=== PATIENT | female | born 1980 | race Caucasian/White ===

== ENCOUNTER 2022-10-09 10:06 | Observation (INO) | payer OTHER ==
[~2022-10-09] VITALS: Ht 157.5 cm; Wt 72.1 kg
[~2022-10-09 10:06] MED LIST: ACEBUTCAFT PO; CLON.5 PO; HYDACE5 PO; HYDACE5325 PO; NAPR500 PO; PROM25 PO; RXHYDACE PO
[2022-10-09 11:11] LABS: BASOPHILS ABSOLUTE AUTO 0.06 K/mm3 (0.00-0.23); BASOPHILS PERCENT AUTO 0 % (0-2); EOSINOPHILS ABSOLUTE AUTO 0.04 K/mm3 (0.00-0.68); EOSINOPHILS PERCENT AUTO 0 % (0-6); Hematocrit 37.4 % (33.0-51.0); Hemoglobin 12.1 g/dL (11.5-16.0); IMMATURE GRAN ABSOLUTE AUTO 0.16 K/mm3 (0.00-0.10); IMMATURE GRAN PERCENT AUTO 1 % (0-1); LYMPHOCYTES ABSOLUTE AUTO 1.88 K/mm3 (0.84-5.20); LYMPHOCYTES PERCENT AUTO 9 % (21-46); MONOCYTES ABSOLUTE AUTO 2.03 K/mm3 (0.16-1.47); MONOCYTES PERCENT AUTO 9 % (4-13); Mean Corpuscular HGB 28.1 pg (26.0-34.0); Mean Corpuscular HGB Conc 32.4 g/dL (31.5-36.5); Mean Corpuscular Volume 87 fL (80-100); Mean Platelet Volume 11.3 fL (9.1-12.4); NEUTROPHILS ABSOLUTE AUTO 18.01 K/mm3 (1.96-9.15); NEUTROPHILS PERCENT AUTO 81 % (41-73); Platelet Count 245 K/mm3 (150-400); RDW Coefficient Variation 15.4 % (11.7-14.2); RDW Standard Deviation 48.9 fL (35.1-46.3); White Blood Cell Count 22.18 K/mm3 (4.00-11.30)
[2022-10-09 11:44] LABS: Albumin/Globulin Ratio 0.6 (0.8-1.8); Bilirubin, Total 0.3 mg/dL (0.1-1.0); Bun/Creatinine Ratio 15.3 (12.0-20.0); Calcium, Blood 8.9 mg/dL (8.5-10.1); Creatinine, Blood 0.72 mg/dL (0.40-1.00); Globulin, Blood 4.9 g/dL (2.2-4.0); Potassium, Blood 3.7 mmol/L (3.5-5.5); Total Protein, Blood 7.9 g/dL (6.4-8.2)
[2022-10-09 12:29] LABS: Source, Urine Clean Catch
[2022-10-09 12:32] LABS: Appearance, Urine Hazy (Clear); Bilirubin, Urine Neg (Neg); Blood, Urine 2+ (Neg); Color, Urine Yellow (P-Yellow); Glucose Qualitative, Urine Neg (Neg); Ketones, Urine Neg (Neg); Leukocyte Esterase, Urine 3+ (Neg); Nitrite, Urine Neg (Neg); Protein, Urine 2+ (Neg); Specific Gravity, Urine 1.015 (1.003-1.022); Urobilinogen, Urine NORM (Normal)
[2022-10-09 12:42] LABS: White Blood Cells, Urine 50-100 /hpf (0-5)
[2022-10-09 12:43] LABS: Red Blood Cells, Urine 0-2 /hpf (0-2)
[2022-10-09 12:44] LABS: Bacteria Many /hpf; Squamous Epithelial Cells Rare /hpf (Few)
[2022-10-09 12:45] LABS: Mucus Light (0-Heavy)
[2022-10-09] MEDS ORDERED: TRAZ50 PO (14:45)
[2022-10-09] MEDS ORDERED: FLUO10 PO (14:45)
[2022-10-09 17:20] LABS: U Amphetamine Screen Not Detected; U Barbituate Screen Not Detected; U Benzodiazapine Screen Not Detected; U Buprenorphine Screen Not Detected; U Cannabinoids Screen Not Detected; U Cocaine Screen Not Detected; U Methadone Screen Not Detected; U Methamphetamine Screen Not Detected; U Opiates Screen Not Detected; U Oxycodone Screen Not Detected; U Phencyclidine Screen Not Detected; U Propoxyphene Screen Not Detected
--- NOTE | 2022-10-09 20:12 | NUR ---
PATIENT IS A NEW ADMIT AT DAY SHIFT CHANGE. AXOX 4 AND INDEPENDENT IN ROOM. DENIES CHEST PAIN, SOB, AND N/V. NS INFUSING AT 200 mL/HR X ONE BAG. ORIENTED TO ROOM AND CALL LIGHT SYSTEM. REPORTS WANTING TO SLEEP AFTER ASSESSMENT. WARM BLANKET PROVIDED AND DRINK PER DIET ORDER. CURRENTLY WATCHING TV AND TALKING ON PHONE. WCTM.
--- NOTE | 2022-10-10 04:06 | NUR ---
SHIFT SUMMARY PATIENT HAD NO ACUTE CHANGES. AXOX 4 AND INDEPENDENT IN ROOM. PIVS REMAIN INTACT. NS FINISHED INFUSING AT 200 mL/HR X ONE BAG. REPORTED HEADACHE X ONE AND TYLENOL 650 MG GIVEN PER EMAR. DENIES CHEST PAIN, SOB, AND N/V. REPORTED FEELING COLD AND WARM BLANKET PROVIDED AND ROOM TEMP INCREASED. VSS/AFEBRILE. SLEPT MOST OF THE SHIFT ONCE WARM. REPORTED CEDS AND ASKED FOR NICOTINE GUM. HOSPITALIST DR AGUILA ORDERED 2 MG PRN Q2. CALL LIGHT IN REACH. BED IN LOWEST POSITION. WILL CONTINUE TO MONITOR UNTIL DAY SHIFT NURSE ASSUMES CARE.
[2022-10-10 04:57] LABS: Hematocrit 34.4 % (33.0-51.0); Hemoglobin 11.1 g/dL (11.5-16.0); Mean Corpuscular HGB 28.5 pg (26.0-34.0); Mean Corpuscular HGB Conc 32.3 g/dL (31.5-36.5); Mean Corpuscular Volume 88 fL (80-100); Mean Platelet Volume 12.1 fL (9.1-12.4); Platelet Count 239 K/mm3 (150-400); RDW Coefficient Variation 15.6 % (11.7-14.2); RDW Standard Deviation 50.4 fL (35.1-46.3); Red Blood Cell Count 3.89 M/mm3 (3.80-5.20); White Blood Cell Count 15.73 K/mm3 (4.00-11.30)
[2022-10-10 05:20] LABS: Bun/Creatinine Ratio 18.1 (12.0-20.0); Calcium, Blood 8.2 mg/dL (8.5-10.1); Creatinine, Blood 0.72 mg/dL (0.40-1.00); Potassium, Blood 3.9 mmol/L (3.5-5.5)
[2022-10-10] MEDS ORDERED: CEFD300 PO (16:00)
[2022-10-10] MEDS ORDERED: VISBIOME 112.51 EACH PO (16:01)
--- NOTE | 2022-10-10 16:46 | NUR ---
DISCHARGE DISCHARGE INSTRUCTIONS, MEDICATIONS AND FOLLOW UP APPOINTMENTS REVIEWED WITH PT. QUESTIONS ASKED AND ANSWERED. PT VERBALLY INDICATED UNDERSTANDING OFF ALL INSTRUCTIONS RECEIVED. PT AMBULATED OUT.
== END 2022-10-10 16:44 | disposition home or self-care (01) ==
LOC: ER 10:06 → MEDS 10:07
PROVIDERS: Nurse Practitioner Acute Care; Physician Assistant; ADMIT Internal Medicine
DX: A41.9 Sepsis, unspecified organism (principal); R65.20 Severe sepsis without septic shock; N39.0 Urinary tract infection, site not specified; G43.909 Migraine, unspecified, not intractable, without status migrainosus; F41.9 Anxiety disorder, unspecified; F32.A Depression, unspecified; F17.210 Nicotine dependence, cigarettes, uncomplicated; Z88.0 Allergy status to penicillin; Z91.040 Latex allergy status
CPT/HCPCS: 36415; 80048; 80053; 81001; 83605; 85025; 85027; 87077; 87086; 87186; A9270; J0696; J1885; J2405; J7030; J7120

== ENCOUNTER 2023-08-01 16:05 | Observation (INO) | payer OTHER ==
[~2023-08-01] VITALS: Ht 157.5 cm; Wt 65.8 kg
[~2023-08-01 16:05] MED LIST changes: +CEFD300 PO; +FLUO10 PO; +TRAZ50 PO; +VISBIOME 112.51 EACH PO
[2023-08-01 16:29] LABS: BASOPHILS ABSOLUTE AUTO 0.07 K/mm3 (0.00-0.23); BASOPHILS PERCENT AUTO 0 % (0-2); EOSINOPHILS ABSOLUTE AUTO 0.09 K/mm3 (0.00-0.68); EOSINOPHILS PERCENT AUTO 1 % (0-6); Hematocrit 36.5 % (33.0-51.0); Hemoglobin 12.3 g/dL (11.5-16.0); IMMATURE GRAN ABSOLUTE AUTO 0.06 K/mm3 (0.00-0.10); IMMATURE GRAN PERCENT AUTO 0 % (0-1); LYMPHOCYTES ABSOLUTE AUTO 4.73 K/mm3 (0.84-5.20); LYMPHOCYTES PERCENT AUTO 30 % (21-46); MONOCYTES ABSOLUTE AUTO 1.26 K/mm3 (0.16-1.47); MONOCYTES PERCENT AUTO 8 % (4-13); Mean Corpuscular HGB 29.4 pg (26.0-34.0); Mean Corpuscular HGB Conc 33.7 g/dL (31.5-36.5); Mean Corpuscular Volume 87 fL (80-100); Mean Platelet Volume 11.6 fL (9.1-12.4); NEUTROPHILS ABSOLUTE AUTO 9.69 K/mm3 (1.96-9.15); NEUTROPHILS PERCENT AUTO 61 % (41-73); Platelet Count 359 K/mm3 (150-400); RDW Coefficient Variation 13.6 % (11.7-14.2); RDW Standard Deviation 43.1 fL (35.1-46.3); Red Blood Cell Count 4.19 M/mm3 (3.80-5.20)
[2023-08-01 17:22] LABS: Alanine Aminotransfer (ALT/SGP 33 U/L (12-78); Albumin, Blood 3.2 g/dL (3.4-5.0); Albumin/Globulin Ratio 0.8 (0.8-1.8); Alk Phos 79 U/L (50-136); Anion Gap 8 mmol/L (6-16); Aspartate Aminotrans (AST/SGOT 31 U/L (12-37); Bilirubin, Total 0.3 mg/dL (0.1-1.0); Blood Urea Nitrogen 13 mg/dL (8-24); Bun/Creatinine Ratio 15.5 (12.0-20.0); CO2, Blood 23 mmol/L (21-32); Calcium, Blood 8.8 mg/dL (8.5-10.1); Chloride, Blood 108 mmol/L (98-108); Creatinine, Blood 0.84 mg/dL (0.40-1.00); Ethanol (Alcohol), Blood, Med <3 mg/dL; Globulin, Blood 3.8 g/dL (2.2-4.0); Glomerular Filtration Rate 88 (60-); Glucose, Blood 139 mg/dL (70-99); Potassium, Blood 3.7 mmol/L (3.5-5.5); Sodium, Blood 139 mmol/L (136-145)
[2023-08-01 20:39] VITALS: BP 152/98
--- NOTE | 2023-08-01 20:42 | NUR ---
ARRIVAL PT ARRIVED DROWSY. REFUSED TO ALLOW ME TO FINISH ANY PAPERWORK OR CHARTING RELATED TO HER ADMISSION AND PENDING SURGERY, STATED THAT ALL WE ARE DOING IS "F STARVING HER" AND THAT WE ARE "NOT TO F TOUCH HER OR HER STUFF". PATIENT EDUCATED THAT SHE COULD NOT SPEAK TO STAFF THAT WAY AND THAT WE ARE HERE TO HELP MAKE HER COMFORTABLE AND THAT EATING BEFORE SURGERY IS NOT FEESABLE. PT C/O PAIN DURING BRIEF ASSESSMENT BUT REFUSING TO ANSWER QUESTIONS IN RELATION TO PAIN, THEREFORE UNABLE TO MEDICATE. UNABLE TO PERFORM ADMISSION D/T PTS NONCOPMPLIANCE, CHARGE NURSE UPDATED ON SITUATION, CHARGE CURRENTLY IN ROOM SPEAKING WITH PATIENT.
--- NOTE | 2023-08-01 21:47 | NUR ---
DR JAZZMINE DAY CALLED AND UPDATED ABOUT THE PT'S BEHAVIOR AND REFUSAL TO PARTICIPATE IN SIGNING CONSENTS FOR SURGERY/RECIEVING CARE. DR. DAY STATED THAT SHE WOULD BE IN TO SPEAK WITH THE PATIENT, AGAIN, BEFORE SURGERY AND REITTERATE WHAT SHE TOLD THE PATIENT IN THE EMERGENCY ROOM. DR. DAY ALSO STATED THAT THE PATIENT COULD D/C AFTER BEING SURGERY IF THAT IS WHAT SHE WISHED, SINCE SHE IS REFUSING TREATMENT AT THIS TIME. THE NURSING FANCY PACKER HAS BEEN UPDATED ON THIS SITUATION, THE CHARGE NURSE IS UPDATED ON THIS SITUATION. CIRCULATING NURSE INTRODUCED HERSELF TO THE PATIENT AND FAMILY. THIS CIRCULATING NURSE WAS UPDATED ON THE SITUATION AND ORIGIONALLY RECCOMENDED CALLING DR. DAY. THE PATIENTS PARENTS ARE IN HER ROOM, LOVING AND ATTENTIVE.
[2023-08-01 22:10] VITALS: BP 139/95
--- NOTE | 2023-08-01 22:27 | NUR ---
CALF MEASUREMENT L CALF 34.5 CM R CALF 33 CM
--- NOTE | 2023-08-01 23:23 | NUR ---
PROVIDER AT BEDSIDE DR. DAY ARRIVED TO SPEAK TO PT AND HER PARENTS ABOUT THE SURGERY AND TO OBTAIN CONCENT. THIS WAS OBTAINED AND PAPERS SIGNED. PT HAS BEEN EXTREMEL SLEEPY BUT IN A MUCH BETTER MOOD SINCE HER PARENTS HAVE ARRIVED. COOPERATIVE AND SPEAKING TO STAFF
[2023-08-02] VITALS (13 sets, daily range): BP systolic 111–138; BP diastolic 76–91
--- NOTE | 2023-08-02 00:53 | NUR ---
PT TO OR WHEELED PT DOWN TO OR WITH ELIZA RN
--- NOTE | 2023-08-02 01:07 | NUR ---
PT TO PACU FROM SURGICAL FLOOR TO BE MADE READY FOR SURGERY. PT SLEEPING BUT AROUSABLE. VSS, ON RA, PT WITH MULTIPLE ABRASIONS ON FACE AND BODY, HEAD WITH KERLIX WRAP. MOTHER AT BEDSIDE
[2023-08-02 04:24] LABS: Hematocrit 36.4 % (33.0-51.0); Mean Corpuscular HGB 29.8 pg (26.0-34.0); Mean Corpuscular Volume 90 fL (80-100); Mean Platelet Volume 11.3 fL (9.1-12.4); Platelet Count 300 K/mm3 (150-400); RDW Coefficient Variation 13.9 % (11.7-14.2); Red Blood Cell Count 4.03 M/mm3 (3.80-5.20); White Blood Cell Count 15.07 K/mm3 (4.00-11.30)
--- NOTE | 2023-08-02 04:33 | NUR ---
ARRIVAL FROM OR PT ARIVED BACK TO UNIT AFTER RECOVERING IN ICU. PT ARROUSABLE TO STIMULI BUT IS VERY SOMULENT. VSS. FORHEAD NOTED TO HAVE DRAINAGE, PILLOWCASE CHANGED. L CALF MEASURES 35 CM, RIGHT CALF MEASURES 33.[address] DAY OKAYED FOR THE PATIENT TO SHOWER WHEN AWAKE, AND IS ABLE TO EAT WHAT SHE CAN TOLLERATE. NO IV ABX NEEDED. TELE PLACED, READS SR 80'S.
[2023-08-02 04:42] LABS: Bun/Creatinine Ratio 12.5 (12.0-20.0); Calcium, Blood 8.1 mg/dL (8.5-10.1); Creatinine, Blood 0.88 mg/dL (0.40-1.00); Magnesium, Blood 1.9 mg/dL (1.6-2.4); Potassium, Blood 3.6 mmol/L (3.5-5.5)
--- NOTE | 2023-08-02 06:34 | NUR ---
SHIFT SUMMARY POD0 FORHEAD I&D, VENOLOOP IN PLACE, SS DRAINAGE NOTED FROM WOUND. PT SLEPT T/O THE NIGHT AND WOKE THIS AM IN A VERY GOOD MOOD. PT C/O GENERALIZED BODY ACHES AND PAIN RELATED TO HER HEAD LAC, BUT REQUESTED ONLY TYLENOL. TYLENOL AND TORADOL GIVEN FOR RELIEF. PT UP TO BSC WITH 1P AND GT BELT FOR SAFETY, PT TOLLERATED WELL AND VOIDED W/O DIFFICULTY. PT REPORTS SHE IS HOPEFUL TO D/C TODAY BUT WANTS TO SPEAK TO HER SURGEON FIRST. NO ACUTE EVENTS SINCE ARRIVING BACK FROM RECOVERY. MOTHER AT BEDSIDE, ATTENTIVE AND LOVING
[2023-08-02] MEDS ORDERED: ACET325 PO (11:12)
[2023-08-02] MEDS ORDERED: IBUP600 PO (11:13)
--- NOTE | 2023-08-02 12:39 | NUR ---
DISCHARGE PT DISCHARGED HOME FROM UNIT AT APROX 1131. PT GIVEN WRITTEN AND VERBAL DC INSTRUCTIONS AND VERBALIZED UNDERSTANDING OF THESE INSTRUCTIONS. IV REMOVED, TOLERATED WELL. DECLINED WC TO CAR.
== END 2023-08-02 12:50 | disposition home or self-care (01) ==
LOC: ER 16:05 → SURS 16:06
PROVIDERS: Student in an Organized Health Care Education/Training Program; ADMIT Surgery
DX: S08.0XXA Avulsion of scalp, initial encounter (principal); S32.049A Unspecified fracture of fourth lumbar vertebra, initial encounter for closed fracture; S80.12XA Contusion of left lower leg, initial encounter; S80.11XA Contusion of right lower leg, initial encounter; S40.812A Abrasion of left upper arm, initial encounter; S40.811A Abrasion of right upper arm, initial encounter; S60.512A Abrasion of left hand, initial encounter; S60.511A Abrasion of right hand, initial encounter; Y03.0XXA Assault by being hit or run over by motor vehicle, initial encounter; F17.200 Nicotine dependence, unspecified, uncomplicated; F15.90 Other stimulant use, unspecified, uncomplicated; Z88.0 Allergy status to penicillin
CPT/HCPCS: 36415; 70450; 71045; 71260; 72125; 72170; 73090; 73590; 74177; 80048; 80053; 82550; 83690; 83735; 84703; 85025; 85027; 86850; 86900; 86901; 90471; 90715; 94760; 96374-59; 96375; 96375-59; 96376; 99285-25; A9270; G0378; G0480; J0330; J0690; J1100; J1170; J1885; J2405; J2704; J3010; J7120; Q9967

== ENCOUNTER 2023-08-04 08:11 | Emergency (ER) | payer OTHER ==
[~2023-08-04] VITALS: Ht 157.5 cm; Wt 63.5 kg
[~2023-08-04 08:11] MED LIST changes: +ACET325 PO; +IBUP600 PO
[2023-08-04 08:46] VITALS: BP 117/87
[2023-08-04] MEDS ORDERED: Norco 5-325 Ta1 EACH PO (11:39)
== END 2023-08-04 11:58 | disposition home or self-care (01) ==
LOC: ER 08:11
DX: S43.101A Unspecified dislocation of right acromioclavicular joint, initial encounter (principal); M79.605 Pain in left leg; V09.20XA Pedestrian injured in traffic accident involving unspecified motor vehicles, initial encounter; F17.200 Nicotine dependence, unspecified, uncomplicated; Z88.0 Allergy status to penicillin; Z91.040 Latex allergy status
CPT/HCPCS: 73030; 99283-25; A9270

== ENCOUNTER 2023-10-13 07:39 | Day surgery (SDC) | payer OTHER ==
[~2023-10-13] VITALS: Ht 157.5 cm; Wt 63.9 kg
[~2023-10-13 07:39] MED LIST changes: +Norco 5-325 Ta1 EACH PO
[2023-10-13] MEDS ORDERED: PROZAC2010 (08:36)
[2023-10-13] MEDS ORDERED: TRAZ50 (08:36)
--- NOTE | 2023-10-13 09:12 | NUR ---
10/13/23 0912 Jennifer King WAS CONSULTED BY RN TO CONFIRM GIVING 2GM ANCEF TO PATIENT DESPITE PENNICLIN ALLERGY. DR. CANNON CONFIRMED IT IS OKAY TO GIVE PATIENT ANCEF.
[2023-10-13 11:57] VITALS: BP 127/91
--- NOTE | 2023-10-13 12:12 | NUR ---
10/13/23 1212 ODALIS GUNDERSON PT UP TO THE BATHROOM. ABLE URINATE W/O DIFF. PT PRETTY STABLE WITH TRANSFERS.
== END 2023-10-13 13:02 | disposition home or self-care (01) ==
LOC: ORSCSDS 07:39
PROVIDERS: Orthopaedic Surgery
PROC: 0RQG0ZZ Repair Right Acromioclavicular Joint, Open Approach (ICD-10-PCS; principal; 2023-10-13 09:00)
DX: S43.101A Unspecified dislocation of right acromioclavicular joint, initial encounter (principal); V03.99XA Pedestrian with other conveyance injured in collision with car, pick-up truck or van, unspecified whether traffic or nontraffic accident, initial encounter; Z79.899 Other long term (current) drug therapy; F17.210 Nicotine dependence, cigarettes, uncomplicated
CPT/HCPCS: C1762; J0171; J0690; J2250; J2704; J2795; J3010; J7120

== ENCOUNTER 2023-12-25 17:33 | Emergency (ER) | payer OTHER ==
[~2023-12-25] VITALS: Ht 157.5 cm; Wt 68.0 kg
[~2023-12-25 17:33] MED LIST changes: +PROZAC2010; +TRAZ50
[2023-12-25 17:43] VITALS: BP 112/78
[2023-12-25] MEDS ORDERED: HYDROcodone 5-APAP 325 TAB PO ONE (17:55)
[2023-12-25] MEDS ORDERED: Ketorolac Tromethamine 30mg Vial IM ONE (17:55)
[2023-12-25] MEDS ORDERED: RX Prepack 6 Tabs Oxycodone 5mg UD ONE (18:55)
== END 2023-12-25 19:20 | disposition home or self-care (01) ==
LOC: ER 17:33
DX: M25.511 Pain in right shoulder (principal); Z88.0 Allergy status to penicillin; Z91.040 Latex allergy status; Z79.899 Other long term (current) drug therapy; G43.909 Migraine, unspecified, not intractable, without status migrainosus; F43.10 Post-traumatic stress disorder, unspecified; E11.9 Type 2 diabetes mellitus without complications; F17.200 Nicotine dependence, unspecified, uncomplicated
CPT/HCPCS: 73030; 96372; 99283-25; A9270; J1885

== ENCOUNTER → 2024-10-31 | Outpatient (CLI) | payer OTHER ==
[~2024-10-31] MED LIST changes: +HYDROCODONE-AC1 EA10 PO; +Voltaren100 GM TOP
== END ==
LOC: LAB SHORT 08:25 → LAB 08:25
DX: M79.672 Pain in left foot (principal); L84 Corns and callosities; L85.1 Acquired keratosis [keratoderma] palmaris et plantaris; B07.0 Plantar wart
CPT/HCPCS: 88305

== ENCOUNTER 2025-11-07 19:47 | Emergency (ER) | payer OTHER ==
[~2025-11-07] VITALS: Ht 157.5 cm; Wt 85.3 kg
[2025-11-07 19:52] VITALS: BP 132/89
[2025-11-07 20:15] LABS: BASOPHILS ABSOLUTE AUTO 0.07 K/mm3 (0.00-0.23); BASOPHILS PERCENT AUTO 0 % (0-2); EOSINOPHILS ABSOLUTE AUTO 0.15 K/mm3 (0.00-0.68); EOSINOPHILS PERCENT AUTO 1 % (0-6); Hematocrit 40.0 % (33.0-51.0); Hemoglobin 13.6 g/dL (11.5-16.0); IMMATURE GRAN ABSOLUTE AUTO 0.05 K/mm3 (0.00-0.10); IMMATURE GRAN PERCENT AUTO 0 % (0-1); LYMPHOCYTES ABSOLUTE AUTO 5.10 K/mm3 (0.84-5.20); LYMPHOCYTES PERCENT AUTO 32 % (21-46); MONOCYTES ABSOLUTE AUTO 1.09 K/mm3 (0.16-1.47); MONOCYTES PERCENT AUTO 7 % (4-13); Mean Corpuscular HGB Conc 34.0 g/dL (31.5-36.5); Mean Corpuscular Volume 90 fL (80-100); NEUTROPHILS ABSOLUTE AUTO 9.35 K/mm3 (1.96-9.15); NEUTROPHILS PERCENT AUTO 59 % (41-73); NRBC ABSOLUTE 0.00 K/mm3 (0.00-0.02); NRBC Auto 0.0 /100 WBC (0.0-0.2); Platelet Count 316 K/mm3 (150-400); RDW Coefficient Variation 12.9 % (11.7-14.2); RDW Standard Deviation 42.4 fL (35.1-46.3)
[2025-11-07 20:47] LABS: Alanine Aminotransfer (ALT/SGP 40 U/L (12-78); Albumin, Blood 3.5 g/dL (3.4-5.0); Albumin/Globulin Ratio 0.8 (0.8-1.8); Anion Gap 7 mmol/L (3-11); Aspartate Aminotrans (AST/SGOT 32 U/L (12-37); Bilirubin, Total <0.1 mg/dL (0.1-1.0); Blood Urea Nitrogen 15 mg/dL (8-24); CO2, Blood 26 mmol/L (21-32); Calcium, Blood 8.9 mg/dL (8.5-10.1); Chloride, Blood 105 mmol/L (98-108); Creatinine, Blood 0.60 mg/dL (0.40-1.00); Globulin, Blood 4.3 g/dL (2.2-4.0); Glucose, Blood 127 mg/dL (70-99); Potassium, Blood 4.1 mmol/L (3.5-5.5); Sodium, Blood 134 mmol/L (136-145); Total Protein, Blood 7.8 g/dL (6.4-8.2)
[2025-11-07] MEDS ORDERED: Ketorolac Tromethamine 30mg Vial IV ONE (21:40)
[2025-11-07 21:45] LABS: Source, Urine Clean Catch
[2025-11-07 21:52] LABS: Bilirubin, Urine Neg (Neg); Color, Urine Yellow (P-Yellow); Glucose Qualitative, Urine Neg (Neg); Ketones, Urine Neg (Neg); Leukocyte Esterase, Urine Neg (Neg); Protein, Urine 1+ (Neg); Specific Gravity, Urine 1.010 (1.003-1.022); Urobilinogen, Urine NORM (Normal)
[2025-11-07 22:15] LABS: Red Blood Cells, Urine 0-2 /hpf (0-2); White Blood Cells, Urine 0-2 /hpf (0-5)
[2025-11-07] MEDS ORDERED: Miralax17 GM PO (22:29)
[2025-11-07] MEDS ORDERED: Magnesium Hydroxide Conc 10 ML UDC PO ONE (22:30)
== END 2025-11-07 23:25 | disposition home or self-care (01) ==
LOC: ER 19:47
PROVIDERS: Student in an Organized Health Care Education/Training Program
DX: K59.00 Constipation, unspecified (principal); R10.31 Right lower quadrant pain; F43.10 Post-traumatic stress disorder, unspecified; G43.909 Migraine, unspecified, not intractable, without status migrainosus; E11.9 Type 2 diabetes mellitus without complications; F17.200 Nicotine dependence, unspecified, uncomplicated; Z79.899 Other long term (current) drug therapy; Z88.0 Allergy status to penicillin; Z91.040 Latex allergy status
CPT/HCPCS: 71260; 74177; 80053; 81001; 81025; 83690; 84484; 85025; 93005; 93010; 96374-59; 99284-25; A9270; J1885; Q9967